=== PATIENT | male | born 1965 | race Caucasian/White ===

== ENCOUNTER → 2020-03-17 | Outpatient (CLI) | payer BC, SELFPAY ==
[~2020-03-17] MED LIST: ASPIRIN EC81 MG PO; ATORVASTATIN CA20 MG PO; BETAPACE AF80 MG PO; ECOTRIN81 MG PO; ESOMEPRAZOLE MA40 MG PO; HUMALOG100 UNIT/3 SC; HYDROCHLOROTHIA50 MG PO; JANUMET XR 50-1 EACH PO; JARDIANCE25 MG PO; K-TAB ER20 MEQ PO; LANTUS SOL100 UNIT/1 SQ; LANTUS100 UNIT/1 SC; LIPITOR TAB 2020 MG PO; LOPRESSOR 25 MG25 MG PO; LOSARTAN POTAS100 MG PO; METOPROLOL TART50 MG PO; NEXIUM40 MG PO; NOVOLOG100 UNIT/1 SC; PEPCID40 MG PO; RANITIDINE HCL300 MG PO; TADALAFIL5 MG PO; ZOFRAN4 MG PO
[2020-03-17 10:07] LABS: HEMOGLOBIN 15.6 gm/dl (14.0-17.5); RED BLOOD COUNT 5.43 M/UL (4.20-5.50); WHITE BLOOD COUNT 5.5 K/UL (4.5-11.0)
[2020-03-17 10:30] LABS: BUN/CREATININE RATIO 22 (0-10)
== END ==
LOC: LAB 09:28
PROVIDERS: Internal Medicine Cardiovascular Disease
DX: I20.8 Other forms of angina pectoris (principal); I10 Essential (primary) hypertension; R00.2 Palpitations; R06.02 Shortness of breath; I47.1 Supraventricular tachycardia
CPT/HCPCS: 36415; 71046; 80048; 85025

== ENCOUNTER → 2020-03-19 | Outpatient (CLI) | payer BC, SELFPAY | LOC: CATH 09:41 | DX: I47.1 Supraventricular tachycardia (principal); I10 Essential (primary) hypertension; K21.9 Gastro-esophageal reflux disease without esophagitis; E78.00 Pure hypercholesterolemia, unspecified; E11.9 Type 2 diabetes mellitus without complications; M19.90 Unspecified osteoarthritis, unspecified site; F41.9 Anxiety disorder, unspecified; Z82.49 Family history of ischemic heart disease and other diseases of the circulatory system; Z83.3 Family history of diabetes mellitus; Z88.1 Allergy status to other antibiotic agents; Z79.82 Long term (current) use of aspirin; Z79.4 Long term (current) use of insulin; Z79.899 Other long term (current) drug therapy | CPT/HCPCS: 82962; 93620; 93621; 93623; 99152; 99153; C1730; C1766; J1200; J1644; J2250; J3010; J7040; J7050 ==

== ENCOUNTER → 2020-05-05 | Outpatient (CLI) | payer BC | LOC: HEART 5 14:30 | DX: I47.1 Supraventricular tachycardia (principal) ==

== ENCOUNTER → 2020-07-07 | Outpatient (CLI) | payer BC | LOC: ECHO 09:00 | DX: I47.1 Supraventricular tachycardia (principal); I35.8 Other nonrheumatic aortic valve disorders | CPT/HCPCS: ECHO; 93306 ==